=== PATIENT | female | born 1985 | race Caucasian/White ===

== ENCOUNTER 2017-12-17 08:00 | Outpatient (CLI) | payer BC | END 2017-12-17 08:01 | disposition home or self-care (01) | LOC: LAB.R 08:00 | PROVIDERS: ATTEND Nurse Practitioner Obstetrics & Gynecology | DX: Z11.3 Encounter for screening for infections with a predominantly sexual mode of transmission (principal) | CPT/HCPCS: 87491; 87591 ==

== ENCOUNTER 2017-12-17 10:33 | Outpatient (CLI) | payer BC ==
[2017-12-17 11:00] LABS: BILIRUBIN,URINE NEGATIVE (NEGATIVE); GLUCOSE, URINE (UA) NEGATIVE (NEGATIVE); KETONES,URINE (UA) NEGATIVE (NEGATIVE); LEUKOCYTE ESTERASE, URINE NEGATIVE (NEGATIVE); NITRITE,URINE NEGATIVE (NEGATIVE); OCCULT BLOOD,URINE NEGATIVE (NEGATIVE); PH,URINE 6.5 PH (5.0-7.5); PROTEIN,URINE NEGATIVE (NEGATIVE); UROBILINOGEN,URINE 0.2 (NORMAL) E.U./dL (NORMAL)
[2017-12-17 11:00] LABS: BASOPHILS % (AUTO) 0.5 %; EOSINOPHILS # (AUTO) 0.1 10^3/uL (0.0-0.7); EOSINOPHILS % (AUTO) 0.7 %; HGB - HEMOGLOBIN 12.2 g/dL (12.0-16.0); LYMPHOCYTES # (AUTO) 1.4 10^3/uL (1.5-3.5); LYMPHOCYTES % (AUTO) 17.1 %; MEAN CORPUSCULAR HEMOGLOBIN 29.7 pg (27.0-31.0); MEAN CORPUSCULAR HGB CONC 34.6 g/dL (32.0-36.0); MEAN CORPUSCULAR VOLUME 85.9 fL (81.0-99.0); MEAN PLATELET VOLUME 9.4 fL (7.9-10.8); MONOCYTES # (AUTO) 0.6 10^3/uL (0.0-1.0); NEUTROPHILS # (AUTO) 6.2 10^3/uL (1.5-6.6); NEUTROPHILS % (AUTO) 74.7 %; PLT - PLATELET COUNT 193 10^3/uL (130-450); RED CELL DISTRIBUTION WIDTH 12.5 % (12.0-15.0); WHITE BLOOD COUNT 8.2 x10^3/uL (4.8-10.8)
[2017-12-17 11:21] LABS: CLARITY,URINE HAZY (CLEAR)
[2017-12-17 11:22] LABS: BACTERIA,URINE Rare /HPF (None Seen); RBC,URINE None Seen /HPF (0-5); SQUAMOUS EPITHELIAL CELL,UR MOD Squamous (<= Few)
[2017-12-18 10:02] LABS: HEPATITIS C ANTIBODY NON-REACTIVE (NON-REACTIVE)
[2017-12-18 10:03] LABS: HEPATITIS B SURFACE ANTIGEN NON-REACTIVE (NON-REACTIVE)
[2017-12-18 13:27] LABS: HIV AG/AB 4TH GEN NON-REACTIVE (NON-REACTIVE)
== END 2017-12-17 10:34 | disposition home or self-care (01) ==
LOC: LAB 10:33
PROVIDERS: ATTEND Nurse Practitioner Obstetrics & Gynecology
DX: Z36.9 Encounter for antenatal screening, unspecified (principal); Z11.3 Encounter for screening for infections with a predominantly sexual mode of transmission
CPT/HCPCS: 36415; 81001; 81599; 85025; 86592; 86762; 86803; 86850; 86900; 86901; 87340; 87389; 87491; 87591

== ENCOUNTER 2018-03-03 07:32 | Outpatient (CLI) | payer BC ==
--- NOTE | 2018-03-03 11:22 | Ultrasound Report ---
Procedure Date: 03/03/2018 Accession Number: [id number] / [id number] Procedure: US - OB Detailed Eval CPT Code: FULL RESULT: EXAM: OB Detailed Eval DATE: 03/03/2018 10:28 AM CLINICAL HISTORY: ENCTR FOR SCREENING OF MOTHER TECHNIQUE: Real-time scanning was performed with insurance follow up representative static images obtained. COMPARISON: None LAST MENSTRUAL PERIOD: 10/16/2017 Clinical Age: 19 weeks 5 days US Age: 19 weeks 0 days EFW Hadlock: 270 grams EFW % Hadlock: 15% Heart Rate: 140 bpm EDC: 07/23/2018 US EDC: 07/28/2018 BPD Hadlock: 19 weeks 0 days; Mean mm 43 HC Hadlock: 18 weeks 6 days; Mean mm 160 AC Hadlock: 19 weeks 0 days; Mean mm 135 FL Hadlock: 19 weeks 1 days; Mean mm 30 Presentation: Vertex Placental Location: Anterior Cervical Length: 3.7 cm Amniotic Fluid: JENELLE Subjectively normal cm; MVP 3.7 cm FINDINGS: A single live intrauterine gestation in vertex presentation with an anterior placenta without evidence of previa is identified. Limited visualization of the right ventricular outflow tract with no definite abnormality identified. The following anatomic structures were visualized and appear normal: The intracranial contents, including the ventricles and posterior fossa; the lips and orbits; the spine; the heart, including 4 chamber view and left ventricular outflow tract, and diaphragm; the abdominal contents, including the stomach, the bilateral kidneys, and urinary bladder, as well as a normal 3-vessel cord insertion; 4 limbs. IMPRESSION: Single live intrauterine gestation with a sonographic age of 19 weeks and 0 days. With the exception of the right ventricular outflow tract which was not well seen, a formal anatomy survey is normal.
== END 2018-03-03 07:33 | disposition home or self-care (01) ==
LOC: DI 07:32
PROVIDERS: ATTEND Nurse Practitioner Obstetrics & Gynecology
DX: Z36.9 Encounter for antenatal screening, unspecified (principal)
CPT/HCPCS: 76811

== ENCOUNTER 2018-05-28 11:19 | Outpatient (CLI) | payer BC, OTHER | END 2018-05-28 11:20 | disposition home or self-care (01) | LOC: LAB 11:19 | PROVIDERS: ATTEND Registered Nurse | DX: Z34.83 Encounter for supervision of other normal pregnancy, third trimester (principal) | CPT/HCPCS: 36415; 86850 ==

== ENCOUNTER 2018-05-28 11:35 | Outpatient (CLI) | payer BC, OTHER | END 2018-05-28 11:36 | disposition home or self-care (01) | LOC: WFO 11:35 | PROVIDERS: ATTEND Registered Nurse | DX: Z53.9 Procedure and treatment not carried out, unspecified reason (principal) ==

== ENCOUNTER 2018-06-03 07:42 | Outpatient (CLI) | payer BC, OTHER ==
--- NOTE | 2018-06-03 11:57 | Ultrasound Report ---
Reason: Encnt for supervsn of normal first prg, third trimester. Reval. Procedure Date: 06/03/2018 Accession Number: [id number] / [id number] Procedure: US - OB F/U or Repeat CPT Code: FULL RESULT: EXAM: COMPLETE OBSTETRICAL ULTRASOUND EXAM DATE: 06/03/2018 08:43 AM. CLINICAL HISTORY: anatomic survey. COMPARISON: None. TECHNIQUE: Real-time sonographic evaluation of the fetus performed by the plastic panel installer. Multiple junior sales representative static images were saved for review. Additional transvaginal imaging to more accurately evaluate cervical length/placental position/etc. DATING: Established EGA 32 weeks 6 days with LORAINE 07/23/2018 based on last menstrual period. EGA 32 weeks 1 day with LORAINE 07/28/2018 based on prior ultrasound. EGA 31 weeks and 5 days with LORAINE 07/31/2018 based on the current ultrasound. GENERAL EVALUATION Ship[place] . Cardiac activity: 154 bpm. movement: Visualized. Presentation: Vertex Placenta: Anterior position. No evidence for previa. Amniotic fluid: JENELLE 9.2 MVP 3.9 cm. BIOMETRY Bi-Parietal Diameter (BPD): 8 cm, 31 weeks 6 days Head Circumference (HC): 29.5 cm, 32 weeks 3 days Abdominal Circumference (AC): 27.1 cm, 31 weeks 1 day Femur Length (FL): 6.1 cm, 31 weeks 5 days Estimated Weight: 1792 g, 25th percentile for 32 weeks 6 days. ANATOMY The ventricular outflow tracts were well seen and appear normal. MATERNAL STRUCTURES Uterus: An anterior fibroid is again seen measuring up to 3.4 cm. The cervix was not specifically evaluated but appeared long and closed subjectively. Right ovary/adnexa: Unremarkable. Left ovary/adnexa: Unremarkable. Free fluid: None. IMPRESSION: 1. Shipley live intrauterine with gestational age 32 weeks 6 days based on last menstrual period. 2. Estimated weight is within expected limits for assigned dating. 3. Normal right ventricular outflow tract. RADIA
== END 2018-06-03 07:43 | disposition home or self-care (01) ==
LOC: DI 07:42
PROVIDERS: ATTEND Nurse Practitioner Obstetrics & Gynecology
DX: Z34.03 Encounter for supervision of normal first pregnancy, third trimester (principal)
CPT/HCPCS: 76816

== ENCOUNTER 2018-06-25 16:25 | Outpatient (CLI) | payer BC, OTHER | END 2018-06-25 16:26 | disposition home or self-care (01) | LOC: LAB.R 16:25 | PROVIDERS: ATTEND Nurse Practitioner Obstetrics & Gynecology | DX: Z36.9 Encounter for antenatal screening, unspecified (principal) | CPT/HCPCS: 87797 ==

== ENCOUNTER 2018-07-10 14:53 | Outpatient (CLI) | payer OTHER, BC ==
--- NOTE | 2018-07-11 11:28 | Ultrasound Report ---
Reason: UTERINE SIZE DATE DISCREPANCY,THIRD TRIMESTER Procedure Date: 07/10/2018 Accession Number: [id number] / [id number] Procedure: US - OB F/U or Repeat CPT Code: FULL RESULT: EXAM: FOLLOW-UP OBSTETRICAL ULTRASOUND EXAM DATE: 07/10/2018 04:00 PM. CLINICAL HISTORY: UTERINE SIZE DATE DISCREPANCY,THIRD TRIMESTER. COMPARISON: 06/03/2018. TECHNIQUE: Real-time sonographic evaluation of the fetus performed by the professional athletes coach. Multiple pharmaceutical sales representative static images were saved for review. DATING: Established EGA 38 weeks 1 day with LORAINE 07/23/2018 based on physician assigned dating. EGA 36 weeks 4 days with LORAINE 08/03/2018 based on the current ultrasound. EGA 37 weeks with LORAINE 07/31/2018 based on the ultrasound exam from 06/03/2018. GENERAL EVALUATION [place] . Cardiac activity: 139 bpm. movement: Visualized. Presentation: Cephalic. Placenta: Anterior position. Amniotic fluid: Normal. JENELLE 8.3 cm. MVP 3 cm. BIOMETRY Bi-Parietal Diameter (BPD): 8.9 cm, 36 weeks 0 days Head Circumference (HC): 32.9 cm, 37 weeks 4 days Abdominal Circumference (AC): 33.5 cm, 37 weeks 3 days Femur Length (FL): 6.9 cm, 35 weeks 3 days Estimated Weight: 3046 g, 31st percentile for 38 weeks 1 day. ANATOMY A full anatomic survey was not performed. MATERNAL STRUCTURES Maternal structures are not evaluated. IMPRESSION: 1. [place] live intrauterine with gestational age 38 weeks 1 day based on previously established dating. 2. Estimated weight is within expected limits for assigned dating. 3. Normal interval growth compared to 06/03/2018. RADIA
== END 2018-07-10 14:54 | disposition home or self-care (01) ==
LOC: DI 14:53
PROVIDERS: ATTEND Nurse Practitioner Obstetrics & Gynecology
DX: O26.843 Uterine size-date discrepancy, third trimester (principal); Z3A.38 38 weeks gestation of pregnancy
CPT/HCPCS: 76816

== ENCOUNTER 2018-07-26 22:26 | Outpatient (CLI) | payer BC, OTHER ==
[2018-07-26 23:03] VITALS: BP 118/77
[2018-07-26 23:57] LABS: RUPTURE OF MEMBRANES PLUS NEGATIVE (NEGATIVE)
== END 2018-07-27 00:49 | disposition home or self-care (01) ==
LOC: WFO 22:26 → FBP 22:32 → WFO 07-27 00:49
PROVIDERS: ATTEND Registered Nurse
DX: Z34.83 Encounter for supervision of other normal pregnancy, third trimester (principal)
CPT/HCPCS: 84112; 99213

== ENCOUNTER 2018-07-27 19:17 | Inpatient (IN) | payer BC, OTHER ==
[2018-07-27 22:14] LABS: RUPTURE OF MEMBRANES PLUS NEGATIVE (NEGATIVE)
[2018-07-27] MEDS ORDERED: ONDANSETRON 4 MG/2 ML VIAL IVP PRN (22:40)
[2018-07-27] MEDS ORDERED: fentaNYL 100 MCG/2 ML VIAL IVP PRN ×2 (23:04→23:13)
[2018-07-27] MEDS ORDERED: fentaNYL 250 MCG/5 ML VIAL IVP PRN (23:11)
[2018-07-27] MEDS: SODIUM CHLORIDE FLUSH 0.9% 10 ML SYRINGE IVP PRN (23:40)
[2018-07-28 00:48] LABS: BASOPHILS % (AUTO) 0.3 %; EOSINOPHILS % (AUTO) 0.2 %; HGB - HEMOGLOBIN 12.1 g/dL (12.0-16.0); LYMPHOCYTES # (AUTO) 1.2 10^3/uL (1.5-3.5); LYMPHOCYTES % (AUTO) 9.8 %; MEAN CORPUSCULAR HEMOGLOBIN 30.6 pg (27.0-31.0); MEAN CORPUSCULAR HGB CONC 34.3 g/dL (32.0-36.0); MEAN CORPUSCULAR VOLUME 89.3 fL (81.0-99.0); MEAN PLATELET VOLUME 11.3 fL (7.9-10.8); MONOCYTES # (AUTO) 0.8 10^3/uL (0.0-1.0); MONOCYTES % (AUTO) 6.6 %; NEUTROPHILS # (AUTO) 10.1 10^3/uL (1.5-6.6); NEUTROPHILS % (AUTO) 83.1 %; PLT - PLATELET COUNT 181 10^3/uL (130-450); RED BLOOD COUNT 3.95 10^6/uL (4.20-5.40); RED CELL DISTRIBUTION WIDTH 13.2 % (12.0-15.0); WHITE BLOOD COUNT 12.1 x10^3/uL (4.8-10.8)
[2018-07-28] MEDS ORDERED: LACTATED RINGERS 1,000 ML IV ONE (01:06)
[2018-07-28] MEDS ORDERED: fent/BUPIV 2 MCG/0.125% 250 ML EP ONE (01:14)
[2018-07-28] MEDS ORDERED: ROPIVACAINE 0.2% PF 20 ML AMPULE ONE (01:14)
[2018-07-28] MEDS: LACTATED RINGERS 1,000 ML IV SCH ×6 (01:23→23:36)
--- NOTE | 2018-07-28 02:07 | ANESTHESIA ---
Pre-Anesthesia VS, & Labs - Diagnosis term , desires labor analgesia - Procedure Labor epidural Vital Signs: Temp Pulse Resp BP Pulse Ox 36.9 C 74 22 114/73 100 07/27/18 23:40 07/27/18 23:40 07/27/18 23:40 07/27/18 23:40 07/27/18 23:40 Height 5 ft 1 in Weight (kg) 77.111 kg - NPO Other (clears from now till delivery) - Is Patient ?: Yes - Lab Results Current Lab Results: Laboratory Tests 07/27/18 23:45: WBC 12.1 H, RBC 3.95 L, Hgb 12.1, Hct 35.2 L, MCV 89.3, MCH 30.6, MCHC 34.3, RDW 13.2, Plt Count 181, MPV 11.3 H, Neut # (Auto) 10.1 H, Lymph # (Auto) 1.2 L, [place] # (Auto) 0.8, Eos # (Auto) 0.0, Baso # (Auto) 0.0, Absolute Nucleated RBC 0.00, Nucleated RBC % 0.0 Fish Bones: 07/27/18 23:45 Home Medications and Allergies Active Medications Fentanyl (Fentanyl) 100 mcg IVP Q1HR PRN PRN Reason: PAIN Lactated Ringer's (Lr) 1,000 mls @ 150 mls/hr IV .Q6H40M [facility] Last Admin: 07/28/18 01:23 Dose: 150 mls/hr Ondansetron HCl (Zofran Inj) 4 mg IVP Q4HR PRN PRN Reason: Nausea / Vomiting Sodium Chloride (Normal Saline Flush 0.9%) 10 ml IVP PRN PRN PRN Reason: NEEDED PER PROVIDER ORDERS Last Admin: 07/27/18 23:40 Dose: 10 ml Allergies/Adverse Reactions: Allergies Allergy/AdvReac Type Severity Reaction Status Date / Time amoxicillin Allergy Rash Verified 07/28/18 01:00 Anes History & Medical History - Anesthetic History Anesthesia Complications: reports: No previous complications - Medical History Cardiovascular: reports: None Pulmonary: reports: None Gastrointestinal: reports: GERD Urinary: reports: None Neuro: reports: None Musculoskeletal: reports: None Blood Disorders: reports: None Smoking Status: Never smoker - Obstetrical History Events: positive: None Plan for Delivery: vaginal with epidural OB Anesthesia History: primagravida Exam General: Alert Dental: WNL Mouth Opening: Greater than 4 Fingerbreadths Neck Mobility: Normal Mallampati classification: II Thyromental Distance: greater than 6 cm Plan Anesthesia Type: Epidural Consent for Procedure(s) Verified and Reviewed: Yes Code Status: Attempt Resuscitation ASA classification: 2-Mild systemic disease Is this case an emergency?: No
[2018-07-28] MEDS ORDERED: diphenhydrAMINE INJ 50 MG/ML VIAL IVP PRN (02:08)
[2018-07-28] MEDS ORDERED: ONDANSETRON 4 MG/2 ML VIAL IVP PRN (02:08)
[2018-07-28] MEDS ORDERED: NALOXONE 0.4 MG/ML VIAL IVP PRN (02:08)
[2018-07-28] MEDS ORDERED: NALBUPHINE 10 MG/ML AMP IVP PRN (02:08)
[2018-07-28] MEDS ORDERED: fent/BUPIV 2 MCG/0.125% 250 ML EP PRN ×3 (02:08→15:57)
[2018-07-28] MEDS ORDERED: METOCLOPRAMIDE 10 MG/2 ML VIAL IVP PRN (02:08)
[2018-07-28] MEDS ORDERED: LACTATED RINGERS 500 ML IV SCH (02:08)
[2018-07-28] MEDS: ePHEDrine 50 MG/ML VIAL IVP PRN ×2 (05:26→07:38)
--- NOTE | 2018-07-28 08:32 | HISTORY & PHYSICAL EXAMINATION ---
Admit History - Visit Reason Visit Reason: Contractions (@ 1100) - : 2 Parity: 0 Premature: 0 Ectopic: 0 : 1 Care: positive: [facility] Risk/History: positive: None Complications This : positive: None Smoking Status: Never smoker - Mother's Labs Mother's Blood Type: positive: O Mother's RH: positive: Positive GBS: positive: Group B Step Negative Rubella Status: positive: Immune Meds/Allgy - Allergies Allergies/Adverse Reactions: Allergies Allergy/AdvReac Type Severity Reaction Status Date / Time amoxicillin Allergy Rash Verified 07/28/18 01:00 Review of Systems - Constitutional Constitutional: reports: Fatigue. denies: Fever, Chills - Eyes Eyes: denies: Blurred vision, Spots in vision, Dipolpia - Cardiovascular Cariovascular: denies: Irregular heart rate, Palpitations, Chest pain, Edema - Respiratory Respiratory: denies: Cough, Snoring, SOB at rest, SOB with exertion - Gastrointestinal Gastrointestinal: reports: Abdominal pain. denies: Constipation, Diarrhea, Nausea, Vomiting - Genitourinary Genitourinary: reports: Frequency, Urgency. denies: Dysuria - Musculoskeletal Musculoskeletal: denies: Muscle pain, Back pain, Muscle aches - Integumentary Integumentary: denies: Rash, Pruritis, Lesions - Neurological Neurological: denies: General weakness, Headache, Dizziness - Psychiatric Psychiatric: denies: Depression, Anxiety - All Other Systems All Other Systems: denies: Reviewed and negative Physical - Abdominal Exam Vital Signs: Temp Pulse Resp BP Pulse Ox 36.9 C 74 22 114/73 100 07/27/18 23:40 07/27/18 23:40 07/27/18 23:40 07/27/18 23:40 07/27/18 23:40 Contraction Frequency (min/apart): 2-4 Contraction Intensity: positive: Moderate Uterine Resting Tone: positive: Soft - Monitoring Heart Rate Baseline: 135 Strip Review: positive: Category I - Presentation Presentation: positive: Vertex - Vaginal Exam Membranes: positive: Membranes intact Dilation (in cm): 3 Effacement (%): 80 Station: positive: 0 Cervical Position: positive: Anterior (per RN) - Speculum Exam Speculum Exam Performed: positive: No Findings: negative: Gross leak - Other Notes Labor Progress Note/Additional Text: Kath Stallings is a 32 y/o @ 40w4d by first trimester US whose care has been consistent & uncomplicated t/o. She presents w/ a complaint of uterine contractions x12 hours & has changed her cervical status from 1cm to 3cm. She is tearful & tired & desires epidural anesthesia. Her screening labs have all been WNL & her GBS status is negative. PMH: Unremarkable PSH: None OBhx: 10 week 2016, no complications GYNhx: No hx STI, normal paps Sochx: , no DV, presently unemployed, no tobacco/ETOH/drugs Famhx: Unremarkable PE: GEN:aaox3, NAD WA gravid female HEENT: grossly normocephalic, atrauamtic RESP: CTA B/L CARDIAC: RRR [id number] ABD: gravid, NT, lie longitudinal, presentation cephalic, EFW 6.5-7# OB: EFM Bl 135bpm + accels, no decels, mod ross; TOCO: UCs q2-4 min x60 sec, palp mod; SVE per RN 380/0, ROM plus negative : No lesion MS: FROM t/o, no deformity, no edema NEURO: no focal deficit SKIN: warm, well-perfused, c/d/i, no lesion PSYCH: uncomfortable & moderately anxious Plan for Labor - Plan For Labor I expect patient to be DC'd or transferred within 96 hours.: Yes Plan for Labor: 1. Admit 2. Epidural per pt request 3. Reassess cervical status x4 hours, earlier PRN
--- NOTE | 2018-07-28 08:51 | PROVIDER PROGRESS NOTE ---
Labor Progress Note - Uterine Monitoring Uterine Monitoring Mode: positive: External toco Contraction Frequency (min/apart): 3 Contraction Intensity: positive: Moderate Uterine Resting Tone: positive: Soft - Monitoring Monitor Mode: positive: External ultrasound Heart Rate Baseline: 145 Heart Rate Variability: positive: Minimal (0-5 bpm) Accelerations: positive: Present, 15x15 Decelerations: positive: Late (intermittent) - Vaginal Exam Dilation (in cm): 3 Effacement (%): 80 Station: 0 Cervical Position: Anterior - Labor Progress Note Labor Progress Note/Additional Text: Called by RN secondary to FHTs s/p epidural placement. Subtle lates, intermittent, became more persistent 0430, pt has received bolus. BPs consistently in 80s/50s. Recommended RN call anesthesia to evaluate patient & administer ephedrine to manage epidural-related hypotension. RN to call back if persistent decelerations s/p ephedrine or anesthesia unable to increase pt blood pressure to appropriate level. No clear labor progress x6 hours.
--- NOTE | 2018-07-28 08:57 | PROVIDER PROGRESS NOTE ---
Labor Progress Note - Uterine Monitoring Uterine Monitoring Mode: positive: External toco Contraction Frequency (min/apart): 4-5 Contraction Intensity: positive: Mild Uterine Resting Tone: positive: Soft - Monitoring Monitor Mode: positive: External ultrasound Heart Rate Baseline: 145 Heart Rate Variability: positive: Moderate (6-25 bmp) Accelerations: positive: Present, 15x15 Decelerations: positive: Variable (occasional to vega in 110s w/ spontaneous return to baseline <30 seconds) Strip Review: positive: Category II (no evidence of acidemia) - Vaginal Exam Dilation (in cm): 4-5 Effacement (%): 70 Station: 0 Cervical Position: Anterior (BBOW AROMed for moderate port-wine fluid) - Labor Progress Note Labor Progress Note/Additional Text: S: Kath is comfortable w/ epidural in place, some frustration w/ still being ; Rodrigo & her mother & MIL are present @ the bedside & supportive O: AAAOx3, NAD WA gravid female VSS: BP no 110/63 s/p 2 doses of ephedrine EFM BL 145bpm, +accels, occ ross decels to vega in 110s w/ spontaneous return to baseline <30 seconds; moderate variability TOCO: UCs q 4-5 min x45-60 seconds, palp mod SVE: 4-5/70/0 (descends to +1 w/ contraction), BBOW AROMed for moderate port- wine amniotic fluid; position LOP A: 32 y/o @ 40w5d w/ prolonged latent phase s/p prolonged prodromal phase, now w/ favorable cervical status GBS negative Port-wine amniotic fluid FHTs cat II w/o evidence of acidemia Adequate pain control w/ epidural anesthesia in place Normotensive s/p 2 doses IV ephedrine malposition P: 1. Reviewed augmentation & management, will initiate Pitocin infusion & titrate per protocol if no cervical change x3 hours 2. Reviewed optimal maternal positioning to facilitate rotation & descent 3. Minimize SVE to only those clinically essential 4. Reviewed plan of care w/ pt, family & RN @ bedside; all in agreement, without concerns.
[2018-07-28] MEDS ORDERED: OXYTOCIN/SODIUM CHLORIDE 500 ML IV SCH (09:00)
[2018-07-28] MEDS ORDERED: ePHEDrine 50 MG/ML VIAL IVP SCH ×2 (10:31→15:35)
[2018-07-28] MEDS: SODIUM CHLORIDE FLUSH 0.9% 10 ML SYRINGE IVP PRN ×3 (10:43→15:57)
--- NOTE | 2018-07-28 11:26 | PROVIDER PROGRESS NOTE ---
Labor Progress Note - Uterine Monitoring Uterine Monitoring Mode: positive: External toco Contraction Frequency (min/apart): 3 Contraction Intensity: positive: Moderate Uterine Resting Tone: positive: Soft - Monitoring Monitor Mode: positive: External ultrasound Heart Rate Baseline: 150 Heart Rate Variability: positive: Moderate (6-25 bmp) Accelerations: positive: Present, 15x15 Decelerations: positive: None Strip Review: positive: Category I - Vaginal Exam Dilation (in cm): 5 Effacement (%): 90 Station: 1 (per RN) Cervical Position: Anterior - Labor Progress Note Labor Progress Note/Additional Text: S: Kath is comfortable w/ her epidural in place; family @ the bedside, suppor tive. O: AAOx3, NAD WA gravid female BPs 90/50s-110s/60s EFM: BL 150bpm, +accels, no decels, mod ross TOCO: UCs q3-4 min SVE: 5/90/+1 per RN, ongoing leakage of CAF A: 32 y/o @ 40w5d by first trimester US, active labor w/ prolonged latent phase & long pre-labor prodromal phase Minimal cervical change s/p AROM x3 hours GBS negative, afebrile, CAF FHTs cat I Adequate pain control w/ epidural anesthesia P: 1. Begin Pitocin infusion & titrate per protocol to adequate labor per tocometry 2. Reassess cervical status 2 hours s/p consistently adequate contraction pattern per tocometry; will place IUPC if no cervical change 3. Anticipate active management of the third stage & uterotonics in room for prevention of PPH, given prolonged labor process & increased risk for PPH
--- NOTE | 2018-07-28 12:32 | PROVIDER PROGRESS NOTE ---
Labor Progress Note - Uterine Monitoring Uterine Monitoring Mode: positive: External toco Contraction Frequency (min/apart): 2-4 Contraction Intensity: positive: Moderate Uterine Resting Tone: positive: Soft - Monitoring Monitor Mode: positive: External ultrasound Heart Rate Baseline: 150 Heart Rate Variability: positive: Moderate (6-25 bmp) Accelerations: positive: Present, 15x15 Decelerations: positive: Variable (non-repetitive to vega in 130s w/ spontaneous return to baseline <30 seconds) Strip Review: positive: Category II (w/o evidence of acidemia) - Vaginal Exam Dilation (in cm): 6 Effacement (%): 90 Station: 1 (per RN) Cervical Position: Anterior - Labor Progress Note Labor Progress Note/Additional Text: Called by FBP RN to review patient strip; reviewed in real time & baseline 150bpm, +accels, non-repetitive variable decelerations to vega in 130s w/ spontaneous return to baseline <30 seconds, moderate variability. Category II & overall reassuring w/o evidence of acidemia. Pitocin appears to be infusing at a rate of 1mU/min & contraction activity is occurring per tocometry q2-4 minutes x80-100 seconds. AROM for port-wine amniotic fluid @ 0815, for a total ruptured duration of 4.25 hours, afebrile. Continue Pitocin infusion & titrate to maintain adequate contraction pattern per tocometry. Reassess cervical status x2 hours, earlier PRN. No additional intervention is clinically indicated @ this time. RN articulates full understanding.
--- NOTE | 2018-07-28 13:38 | PROVIDER PROGRESS NOTE ---
Labor Progress Note - Uterine Monitoring Uterine Monitoring Mode: positive: External toco Contraction Frequency (min/apart): 2-3 on 1 mU/min of Pitocin Contraction Intensity: positive: Moderate Uterine Resting Tone: positive: Soft - Monitoring Monitor Mode: positive: External ultrasound Heart Rate Baseline: 150 Heart Rate Variability: positive: Moderate (6-25 bmp) Accelerations: positive: Present, 15x15 Decelerations: positive: None Strip Review: positive: Category I - Vaginal Exam Dilation (in cm): 6 Effacement (%): 90 Station: 1 Cervical Position: Anterior (per RN) - Labor Progress Note Labor Progress Note/Additional Text: S: Kath is having discomfort in her LLQ w/ her epidural in place. Discomfort is persistent. Family @ bedside, supportive O: AAOx3 VSS BPs 110s/70s EFM: BL 150bpm, +accels, no decels, mod ross TOCO: UCs q2-3 min x80-100 seconds, palpably moderate w/ 1 mU/min Pitocin infusing SVE per RN: A: 32 y/o @ 40w5d, prolonged latent phase Pitocin augmentation w/o titration, adequate contraction pattern per tocometry No cervical change since initiation of Pitocin infusion Inadequate pain control w/ epidural anesthesia GBS negative, AROM 5.25 hours, afebrile FHTs cat I P: 1. Anesthesia to evaluate patient 2. Continue to titrate Pitocin per protocol to maintain adequate labor pattern by tocometry 3. Reassess cervical status x2 hours, earlier PRN; if no cervical change x2 hours, will insert IUPC 4. Reviewed FHR strip directly w/ Dr. Catracho MD, present @ bedside; he concurs with present management plan & agrees that FHTs are presently cat I & that, on long-term review of FHTs, variability remains moderate w/o evidence of acidemia
[2018-07-28] MEDS ORDERED: miSOPROStol 200 MCG TABLET ONE (13:59)
[2018-07-28] MEDS ORDERED: LIDOCAINE 1% 50 ML MDV ONE (13:59)
[2018-07-28] MEDS ORDERED: LIDOCAINE-MPF 1% 5 ML VIAL ONE (14:05)
[2018-07-28] MEDS ORDERED: fentaNYL 100 MCG/2 ML VIAL ONE ×2 (14:17→14:47)
--- NOTE | 2018-07-28 15:19 | ANESTHESIA PROCEDURE NOTE ---
Anesthesia Epidural Template - Other Comments Other Comments: Called to evaluate epidural due patient reports of pain with contractions. Upon arrival, level was noted to be at L2 and patient was very uncomfortable with contractions. It appeared as tho the previously placed epidural had backed out 1cm. A bolus of 10ml of 1%PF lidocaine was given via epidural and the patient reported no pain relief after 15 mins. Discussed risk and benefits of replacing epidural with CSE and patient wanted to proceed. The previously placed epidural was removed with tip intact and the patient's back was prepped with betadine solution x3. The skin was localized at the L3-L4 level and a 17G tuhoy needle was inserted with MICHAEL at 5cm. A 27G pencan spinal needle was inserted with return of clear fluid and a total of 20mcg of fentanyl was injected intrathecal. The flexible catheter was inserted and advanced with ease to 11cm. Aspiration prior to test dose was performed and it was noted clear fluid was easily aspirated into syringe. 2ml of test dose was given and patient reported relief from contractions., It is highly suspected the catheter is intrathecal. Catheter continues to aspirate clear fluid easily and due to relief patient obtained with test dose, it will be treated as such until proven otherwise. The drip was reduc ed to 2ml/hr with no PCEA and nursing staff was advised on how to manage catheter. All anesthesia staff was notified and the catheter was marked as intrathecal. Plan is to remove catheter in 24 hours and monitor for post dural puncture headache post delivery.
[2018-07-28] MEDS ORDERED: BUPIVACAINE 0.25% PF 10 ML VIAL ONE (15:31)
[2018-07-28] MEDS ORDERED: MINERAL OIL LIGHT 10 ML MC ONE (18:07)
[2018-07-28] MEDS ORDERED: METHYLERGONOVINE 0.2 MG/ML AMP ONE (19:19)
--- NOTE | 2018-07-28 19:20 | PROVIDER PROGRESS NOTE ---
Labor Progress Note - Uterine Monitoring Uterine Monitoring Mode: positive: External toco Contraction Frequency (min/apart): 2-4 Contraction Intensity: positive: Moderate to strong Uterine Resting Tone: positive: Soft - Monitoring Monitor Mode: positive: External ultrasound Heart Rate Baseline: 150 Heart Rate Variability: positive: Moderate (6-25 bmp) Accelerations: positive: Present, 15x15 Strip Review: positive: Category I - Vaginal Exam Dilation (in cm): 10 Effacement (%): 100 Station: 2 Cervical Position: Anterior (per RN) - Labor Progress Note Labor Progress Note/Additional Text: S: Kath is now comfortable w/ intrathecal catheter in place & infusing. Family @ bedside, supportive. Does not have urge to push but has been laboring down x1.25 hours O: AAOx3, NAD WA gravid female VSS Bp 106/85 EFM: BL 150bpm, +accels, no decels, mod ross TOCO: UCs q2-4 min x80-100 sec, 1mU/min of Pitocin infusing SVE: per RN @ 1800 10/100/+2 A: 32 y/o @ 40w5d by first trimester US, long latent phase, s/p AROM & Pitocin augmentation w/ progressive cervical change 2nd stage, laboring down x1.25 hours GBS negative, port-wine amniotic fluid, AROM x11 hours, afebrile FHTs cat I Adequate pain control w/ intrathecal anesthesia P: 1. Begin pushing 2. Anticipate 3. Plan for full array of uterotonics onhand in the room for immediate use for both active management to prevent & management of excessive bleeding, given long pre-labor prodromal phase & long latent phase of labor
--- NOTE | 2018-07-28 19:57 | PROVIDER PROGRESS NOTE ---
Labor Progress Note - Uterine Monitoring Uterine Monitoring Mode: positive: IUPC (Placed without incident) Contraction Frequency (min/apart): baseline 30mmHg, peak 65mmHg, MVU presently 175 : 2-4 Contraction Intensity: positive: Moderate - Monitoring Monitor Mode: positive: External ultrasound Heart Rate Baseline: 150 Heart Rate Variability: positive: Moderate (6-25 bmp) Accelerations: positive: Present, 15x15 Decelerations: positive: None Strip Review: positive: Category I - Vaginal Exam Dilation (in cm): 5 Effacement (%): 70, edematous Station: 0 Cervical Position: Midposition - Labor Progress Note Labor Progress Note/Additional Text: S: Kath is comfortable w/ intrathecal in place, frustrated w/ length of process O: AAox3, NAD WA gravid female VSS EFM: BL 150, +accels, no decels, mod ross IUPC placed w/o incident, baseline 30mmHg, Peak 65mmHg, MVU presently ~175 SVE by me: 5/70 (edematous)/0, anterior, position ROP A: 32 y/o @ 40w5d by first trimester US, long latent phase, minimal cervical progress on my exam x11 hours, AROM for port-wine amniotic fluid x11.5 hours, afebrile s/p initiation of Pitocin infusion @ 1130, no titration as nursing stated cervical change was occurring Adequate pain control w/ intrathecal anesthesia GBS negative FHTs cat I Dysfunctional labor pattern P: 1. Titrate Pitocin per IUPC to achieve adequate labor pattern by MVU 2. Reassess cervical status 2 hours s/p adequate labor achieved by MVU 3. Reviewed optimal maternal positioning to facilitate rotation & descent 4. Encouraged maternal rest 5. Reviewed possibility of CPD & implications, likely just inadequate labor, but if no cervical change w/ adequate contraction activity by IUPC will be arrest of dilatation & reviewed w/ pt indication for operative delivery in that event 6. Reviewed implications of malposition 7. Dr. [place] MD, back-up RN PERITONE[facility] DIALYSIS apprised of situation
[2018-07-28 22:20] LABS: ALBUMIN 2.4 g/dL (3.2-5.5); ALBUMIN/GLOBULIN RATIO 0.7 (1.0-2.2); BILIRUBIN,TOTAL 0.6 mg/dL (0.2-1.0); CALCIUM 8.1 mg/dL (8.5-10.3); CREATININE 0.7 mg/dL (0.4-1.0); TOTAL PROTEIN 5.8 g/dL (6.7-8.2)
[2018-07-29] MEDS ORDERED: METHYLERGONOVINE 0.2 MG/ML AMP ONE (02:55)
[2018-07-29] MEDS ORDERED: METHYLERGONOVINE 0.2 MG/ML AMP IM ONE (03:00)
[2018-07-29] MEDS ORDERED: SODIUM CHLORIDE 0.9% IV SCH (03:00)
[2018-07-29] MEDS ORDERED: VANCOMYCIN INJ 1 GM in SODIUM CHLORIDE 0.9% 250 ML IV SCH ×2 (03:00→12:30)
[2018-07-29] MEDS ORDERED: GENTAMICIN IV SCH (03:00)
[2018-07-29] MEDS ORDERED: VANCOMYCIN PER PHARMACY 0.00001 GM in SODIUM CHLORIDE 0.9% 250 ML IV PRN (03:06)
--- NOTE | 2018-07-29 03:28 | PROVIDER PROGRESS NOTE ---
Labor Progress Note - Uterine Monitoring Uterine Monitoring Mode: positive: IUPC Contraction Frequency (min/apart): 2-3 baseline 25mmHg, peak 80mmHg on 5mU/min of Pitocin Contraction Intensity: positive: Strong Uterine Resting Tone: positive: Soft - Monitoring Monitor Mode: positive: External ultrasound Heart Rate Baseline: 150 Heart Rate Variability: positive: Moderate (6-25 bmp) Accelerations: positive: Present, 15x15 Decelerations: positive: None Strip Review: positive: Category I - Vaginal Exam Dilation (in cm): deferred - Labor Progress Note Labor Progress Note/Additional Text: S: Kath is comfortable w/ intrathecal in place. O: AAox3, NAD WA gravid female VSS EFM: BL 150bpm, +accels, no decels, mod ross IUPC: UCs q2-3 min x80-100 sec, MVU >200 @ this time SVE deferred A: 32 y/o @ 40w5d by first trimester US, dysfunctional labor pattern, prolonged latent phase, 14.25 hours s/p AROM for [place]-wine amniotic fluid, afebrile Pitocin now titrated sufficiently to achieve active labor GBS negative, afebrile Adequate pain control w/ intrathecal anesthesia FHTs cat I P: 1. Continue to titrate Pitocin to maintain adequate labor pattern by MVU 2. Reassess cervical status x2 hours to ensure progress
--- NOTE | 2018-07-29 03:32 | PROVIDER PROGRESS NOTE ---
Labor Progress Note - Uterine Monitoring Uterine Monitoring Mode: positive: IUPC Contraction Frequency (min/apart): 2-3 MVU >200 Contraction Intensity: positive: Strong Uterine Resting Tone: positive: Soft - Monitoring Monitor Mode: positive: External ultrasound Heart Rate Baseline: 150 Heart Rate Variability: positive: Moderate (6-25 bmp) Accelerations: positive: Present, 15x15 Decelerations: positive: None Strip Review: positive: Category I - Vaginal Exam Dilation (in cm): 8 Effacement (%): 100 Station: 2 (per RN) Cervical Position: Anterior - Labor Progress Note Labor Progress Note/Additional Text: S: Kath is requesting a bolus of anesthesia secondary to renewed discomfort, family @ bedside, supportive O:AAOx3, NAD WA gravid female VSS EFM: BL 150bpm +accels, no decels, mod ross IUPC: UCs q 2-3 min baseline 25mmHg, peak 80mmHg; MVU >200 on 5mU/min of Pitocin SVE per RN: 8/100/+1 A: 32 y/o @ 40w6d by first trimester US, dysfunctional labor pattern w/ prolonged latent phase Progressive cervical change w/ adequate labor achieved w/ IUPC & appropriate titration of Pitocin infusion GBS negative, AROM x 16 hours, afebrile FHTs cat I Inadequate pain control w/ current anesthesia P: 1. Reassess cervical status x3 hours, earlier PRN 2. Anesthesia to evaluate 3. Continue to titrate Pitocin to maintain adequate labor by IUPC
--- NOTE | 2018-07-29 03:45 | DELIVERY NOTE ---
Delivery Note - Labor Labor: positive: Augmented by ARM, Augmented by oxytocin - Delivery Method Delivery Method: positive: Spontaneous vaginal delivery - Presentation Presentation: positive: Vertex, LINUS - right occiput anterior - Nuchal Cord Nuchal Cord: positive: None - Anesthetic Anesthetic Type: - Amniotic Fluid Description Amniotic Fluid Description: positive: [place] tinged, Foul odor (noticed w/ assessment of cervical status @ anterior lip; tachycardia also noted; triple I dx'ed @ that time & vancomycin 1g IVPB & gentamycin 150mg IVPB administered immediately prior to delivery) - Episiotomy Type Episiotomy Type: positive: None - Laceration Laceration: positive: None - Delivery Outcome Delivery Outcome: positive: Livebirth - [place]: positive: Placed in direct skin contact with mother, Suctioned, Bulb syringe, Stimulated, Warmed, [place] used [place] sex: positive: Female - Cord Cord: positive: 3 vessels - Placenta Placenta: positive: Intact, Spontaneous, Other (very warm) - Estimated Blood Loss Estimated Blood Loss (in cc): 150 - Post Delivery Events Post Delivery Events: positive: No post delivery events - Delivery Comments (Free Text/Narrative) Delivery Comments (Free Text/Narrative): Kath Stallings is a 32 y/o [id number] who presented in latent labor s/p long prodromal phase, requesting an epidural. She received an epidural @ 3cm dilatation & progressed slowly thereafter to 4cm over a period of >8 hours. She underwent AROM for pink-tinged amniotic fluid @ 0815 on 07/28/2018 w/ nursing orders to initiate Pitocin infusion @ 11:15 if no significant cervical change. She underwent removal of her epidural catheter & replacement w/ intrathecal catheter secondary to inadequate anesthesia. FHTs were monitored electronically t/o & were cat I-II w/o evidence of acidemia. Minimal cervical change was noted & Pitocin infusion was therefore initiated but it was not titrated beyond 1mU/min, as contraction frequency was adequate & RN conveyed that there was progressive cervical change; RN reported pt completely dilated @ 1800, but she was found to have been unchanged when assessed by myself @ 1930. IUPC was therefore placed w/o incident & Pitocin was titrated per orders to achieve adequate labor by MVU. Maximum Pitocin infusion was 5mU/min & adequate labor was readily achieved; pt was found to be 8cm @ 0030, and progressed w/ ongoing Pitocin infusion to an anterior lip, which was persistent but reducible. With evaluation of cervical status @ anterior lip, amniotic fluid was noted to have a foul odor & tachycardia was additionally noted; a diagnosis of triple I was therefore made & parenteral antimicrobial therapy was initiated w/ vancomycin & gentamicin. Anterior lip reduced & pt found to be complete @ 0305, for a total first stage duration of 19 hours. Pt pushed w/ direction & excellent expulsive effort to achieve viable female in LINUS position over an intact perineum @ 0318, for a total 2nd stage duration of 13 minutes. Infant vigorous, very warm to touch; placed to maternal abd for drying/stim. Delayed cord clamping until cessation of pulsation, then cord clamped x2 by CNM, cut by FOB. 3VC noted, cord blood obtained; cord segment obtained for gases secondary to cat II tracing w/ tachycardia x45 minutes prior to delivery. 3rd stage actively managed w/ Pitocin in IV fluids & methergine 0.2mg IM x1 for prolonged latent phase. Placenta delivered spontaneously & intact, Antonio, @ 0320, for a total 3rd stage duration of 2 minutes. FF @ U. Vagina & perineum inspected & found to be intact. Placenta to pathology for evaluation for suspected Triple I. EBL 150mL. Mother & stable. Apgars 8/9, weight pending; planning to breastfeed; nuzzling @ breast w/in 20 minutes of delivery.
[2018-07-29] MEDS ORDERED: HYDROCORTISONE 1% CREAM 28 GM TUBE PR PRN (03:54)
[2018-07-29] MEDS ORDERED: HYDROCORTISONE/PRAMOXINE 10 GM PR PRN (03:54)
[2018-07-29] MEDS ORDERED: WITCH HAZEL/GLYCERIN 1 EACH MED..PAD TOP PRN (03:54)
[2018-07-29] MEDS ORDERED: MAGNESIUM HYDROXIDE 2,400 MG/30 ML UDC PO PRN (03:54)
[2018-07-29] MEDS ORDERED: OXYTOCIN/SODIUM CHLORIDE 0 ML IV ONE (04:41)
[2018-07-29] MEDS: ACETAMINOPHEN 500 MG TABLET PO SCH ×3 (06:11→16:44)
[2018-07-29] MEDS: IBUPROFEN 800 MG TABLET PO SCH ×4 (06:11→21:27)
[2018-07-29 06:22] LABS: BASOPHILS # (AUTO) 0.2 10^3/uL (0.0-0.1); BASOPHILS % (AUTO) 0.9 %; HGB - HEMOGLOBIN 12.3 g/dL (12.0-16.0); LYMPHOCYTES # (AUTO) 0.5 10^3/uL (1.5-3.5); LYMPHOCYTES % (AUTO) 2.9 %; MEAN CORPUSCULAR HEMOGLOBIN 30.5 pg (27.0-31.0); MEAN CORPUSCULAR HGB CONC 33.8 g/dL (32.0-36.0); MEAN CORPUSCULAR VOLUME 90.2 fL (81.0-99.0); MONOCYTES # (AUTO) 0.9 10^3/uL (0.0-1.0); MONOCYTES % (AUTO) 5.2 %; NEUTROPHILS # (AUTO) 16.5 10^3/uL (1.5-6.6); PLT - PLATELET COUNT 143 10^3/uL (130-450); RED BLOOD COUNT 4.04 10^6/uL (4.20-5.40); RED CELL DISTRIBUTION WIDTH 13.3 % (12.0-15.0); WHITE BLOOD COUNT 18.1 x10^3/uL (4.8-10.8)
[2018-07-29] MEDS: DOCUSATE SODIUM 100 MG CAPSULE PO SCH ×2 (08:51→21:27)
--- NOTE | 2018-07-29 11:41 | ANESTHESIA POST OP EVALUATION ---
Anesthesia Post Eval - Post Anesthesia Eval CV Function Including HR & BP: positive: Stable Pain Control: positive: Adequate Nausea & Vomiting: positive: Negative Mental Status: positive: Appropriate Anesthesia Complications: positive: None (Patient reports she had good pain control with epidural. No c/o headache. No residual effects from epidural. No apparent anesthesia complications.)
[2018-07-29] MEDS ORDERED: GENTAMICIN 120 MG in SODIUM CHLORIDE 0.9% 100ML 100 ML IV SCH (12:00)
[2018-07-29] MEDS ORDERED: SODIUM CHLORIDE FLUSH 0.9% 10 ML SYRINGE ONE (13:22)
[2018-07-29] MEDS: SODIUM CHLORIDE FLUSH 0.9% 10 ML SYRINGE IVP PRN (13:22)
[2018-07-30] MEDS ORDERED: SODIUM CHLORIDE 0.9% IV SCH ×3 (03:15)
[2018-07-30] MEDS ORDERED: GENTAMICIN IV SCH (03:15)
[2018-07-30] MEDS ORDERED: SODIUM CHLORIDE FLUSH 0.9% 10 ML SYRINGE ONE (03:15)
[2018-07-30] MEDS ORDERED: GENTAMICIN PER PHARMACY IV SCH ×2 (03:15)
[2018-07-30] MEDS: ACETAMINOPHEN 500 MG TABLET PO SCH ×2 (04:17→13:04)
[2018-07-30] MEDS: IBUPROFEN 800 MG TABLET PO SCH ×3 (04:29→15:34)
[2018-07-30] MEDS ORDERED: VANCOMYCIN INJ 1 GM in SODIUM CHLORIDE 0.9% 250 ML IV SCH (04:30)
--- NOTE | 2018-07-30 08:53 | Discharge Plan ---
Discharge Plan Disposition: 01 Home, Self Care Condition: Good Diet: Regular Activity Restrictions: pelvic rest x6 weeks Shower Restrictions: No Driving Restrictions: No Weight Bearing: Full Weight Instruction Topics: Vaginal After, Breastfeed How To, Exercises Kegel No Smoking: If you smoke, Please STOP! Call for help. Follow-up with: Fox Burris, ROSIBEL, LUX [Provider Admit Priv/Credential] -
--- NOTE | 2018-07-30 08:56 | DISCHARGE SUMMARY ---
"Discharge Summary Admit Date: 07/27/18 Discharge Date: 07/30/18 Discharging Provider: gaurav Condition at Discharge: Good Discharge Disposition: 01 Home, Self Care Discharge Facility Name: [facility] - DIAGNOSES Admission Diagnoses: latent labor @ 40w4d Discharge Diagnoses with Status of Each Condition: - HPI History of Present Illness: Kath Stallings is a 32 y/o [id number] who was admitted in latent labor w/ long prodromal phase. She made slow cervical progress. She received an epidural & then an intrathecal catheter for anesthesia. She underwent AROM & Pitocin infusion for augmentation. She received IUPC monitoring to direct Pitocin titration. She developed Triple I in the very last hour of labor. She delivered vaginally w/o further complication, a viable female. - CONSULTS | PROCEDURES Consultations: anesthesia Procedures: epidural placement intrathecal placement AROM Pitocin augmentation IUPC placement - HOSPITAL COURSE Hospital Course: , Kath is ambulating & voiding w/o difficulty or discomfort. She is passing flatus & tolerating a regular diet. She is well w/o difficulty or discomfort. She reports minimal lochia rubra. She has adequate pain control w/ non-opioid analgesia. She is not planning to return to work. She has excellent social support. She is able to fully articulate pp warning s/sx, including pp depression s/sx, and pp aftercare instructions. She is ready to leave the hospital. - ALLERGIES Allergies/Adverse Reactions: Allergies Allergy/AdvReac Type Severity Reaction Status Date / Time amoxicillin Allergy Rash Verified 07/28/18 01:00 - MEDICATIONS Home Medications: Ambulatory Orders Medication Instructions Recorded Confirmed Ibuprofen [Motrin] 800 mg PO Q6H tablet 07/30/18 Witch Amelia/Glycerin [Tucks] 1 each TOP QID PRN med..pad 07/30/18 - PHYSICAL EXAM AT DISCHARGE General Appearance: positive: No acute distress, Alert Eyes Bilateral: positive: Normal inspection Respiratory: positive: Chest non-tender, No respiratory distress, Breath sounds nml Cardiovascular: positive: Regular rate & rhythm, No murmur, No gallop Abdomen: positive: Non-tender, No distention, Other (FF U-1) Back: positive: Nml inspection Skin: positive: Color nml, No rash, Warm, Dry Extremities: positive: Non-tender, Full ROM, Nml appearance, No pedal edema. negative: Calf tenderness, Kirsten's sign/cords Neurologic/Psychiatric: positive: Oriented x3, CN's nml (2-12), Motor nml, Sensation nml, Mood/affect nml - LABS Result Diagrams: 07/29/18 06:15 07/28/18 22:00 - FOLLOW UP Follow Up: x1 week in outpt clinic, earlier PRN - TIME SPENT Time Spent in Discharge (Minutes): 20"
[2018-07-30] MEDS: DOCUSATE SODIUM 100 MG CAPSULE PO SCH (10:19)
[2018-07-30 15:45] VITALS: BP 113/74
--- NOTE | 2018-07-30 15:46 | Labor Flowsheet ---
Labor Flowsheet Datetime Report Generated by CPN: 07/30/2018 15:46 Datetime: 07/30/2018 14:49 VITAL SIGNS NBP Sys/Dafne/Mean (mmHg): 113 : 74 : 82 Pulse: 56 LaborFlag: Labor Datetime: 07/29/2018 03:18 UTERINE ACTIVITY Monitor Mode: Internal Frequency (min): 1.5-2 Quality: Strong Duration (sec): 80-90 Pattern: Normal: <= 5 Contractions in 10 Minutes Resting Tone (Palpate): Relaxed Contraction Comments: unable to determine contraction strength d/t spotty contraction tracing with maternal pushing ASSESSMENT A Monitor Mode: External US FHR Baseline Rate : 155 Variability: Moderate 6-25 bpm Accelerations: 15X15 Comments: possible variable decels, difficult to determine d/t spotty tracing during maternal pushi ng Datetime: 07/29/2018 03:02 VAGINAL EXAM Dilatation (cm): 10.0 Effacement (%): 100 Station: 1 Exam by: Fox Burris Datetime: 07/29/2018 03:00 Resting Tone IUP (mmHg): 25 Intensity IUP (mmHg): 65-80 [place] Units (mmHg): 235 Pitocin Checklist: At Least 1 Acceleration of 15 bpm x 15 Seconds in 30 Minutes or Adequate Variabi lity; No More than 1 Late Deceleration Occurred in Past 30 Minutes; No More than 2 Variable Decelerat ions > 60 Seconds in Duration and decreasing >60 bpm in 30 minutes; No More than 5 Uterine Contractio ns in 10 Minutes for any 20 Minute Interval; Uterus Palpates Soft between Contractions; IUPC Resting Tone less than 25 mmHg FHR Baseline Changes: Tachycardia Decelerations: Variable Category: Category II PAIN Pain Scale: 0 Pain Presence: None/Denies Pain Type: N/A I/O Interventions: Burns Discontinued TEACHING Instructional Method: Verbal Plan of Care: Plan of Care Discussed Labor/Induction: Pushing Methods Datetime: 07/29/2018 02:59 SpO2 (%): 99 STAGE 2 Pushing: Coached on Pushing Pushing Position: Pushing with Contractions; Pushing Lithotomy Pushing Progress: Descent with Pushing Datetime: 07/29/2018 02:49 COMMUNICATION Communication: Provider at Bedside Provider Notified (Name): Morghan Milagrosa Communication Comments: provider in house; provider notified of pt's urine output Datetime: 07/29/2018 02:40 MATERNAL ASSESSMENT Level of Consciousness: Fully Conscious Headache: Denies Breath Sounds, Left: Clear and Equal Breath Sounds, Right: Clear and Equal Nausea/Vomiting: Denies Datetime: 07/29/2018 02:02 Temperature (C): 37.2 Datetime: 07/29/2018 01:22 Patient Position/Activity: High Fowlers Patient Care Comments: frog legs Datetime: 07/29/2018 01:14 Vaginal Exam Comments: pt reports increased pressure Datetime: 07/29/2018 00:45 Respirations: 18 Datetime: 07/29/2018 00:10 Teaching Comments: pt sleeping Datetime: 07/29/2018 00:00 Anesthesia Level Check: T8- Ribs Datetime: 07/28/2018 23:40 Pain Assessment Comments: pt sleeping Datetime: 07/28/2018 23:07 PATIENT CARE IV/Blood Work: IV Bolus Started Datetime: 07/28/2018 22:33 Epidural Procedure: Loading Dose Datetime: 07/28/2018 22:26 Cervix, Position: Midposition Datetime: 07/28/2018 22:00 Pain Location: Abdomen Pain Coping: Talking Through Contractions; Breathing Through Contractions Datetime: 07/28/2018 21:11 MEDICATIONS Pitocin (milliunits): Increased to @ 5 Datetime: 07/28/2018 20:00 Unit Routine: Unit Personnel Datetime: 07/28/2018 19:29 Monitor Interventions for UA: IUPC Inserted Datetime: 07/28/2018 19:15 Oxygen Method: Room Air Datetime: 07/28/2018 18:00 Membrane Status: Ruptured Amniotic Fluid Color: Clear Amniotic Fluid Amount: Small RUQ Epigastric Pain: Denies Datetime: 07/28/2018 16:53 Vital Sign Comments: Pt states rectal pressure Datetime: 07/28/2018 16:00 Anesthesia Comments: Provider updated on 10mg Ehedrine given Datetime: 07/28/2018 15:58 Anesthesia Interventions Other: Ephedrine Datetime: 07/28/2018 15:40 Monitor Interventions for FHR: Ultrasound Adjusted Datetime: 07/28/2018 15:21 Pain Goal: 2 Datetime: 07/28/2018 14:46 Epidural Procedure Other: Pump Started Datetime: 07/28/2018 14:31 ANESTHESIA Anesthesia Plans: Epidural Datetime: 07/28/2018 13:25 Strip Reviewed by: CNM Milagrosa Datetime: 07/28/2018 13:00 Antiemetics/Antacids: Zofran (mg) @ 4mg Datetime: 07/28/2018 11:26 Medication Comments: Verified with H. Brittany, RN Datetime: 07/28/2018 10:59 Cervix, Consistency: Soft Datetime: 07/28/2018 08:08 Membranes Rupture Method: Artificial Amniotic Fluid Odor: Normal Membrane Comments: clear and bloody Datetime: 07/28/2018 08:05 Provider Reviewed Strip: Yes Notification Reason: Status Update; Status; Labor Status; Uterine Activity; Pain; Maternal Vi jelani Sign Change Datetime: 07/28/2018 06:30 Actions for Decelerations: Side to Side Datetime: 07/28/2018 06:00 Stage of : Labor Temperature Route: Oral Datetime: 07/28/2018 01:30 Epidural Positioning: Sitting Datetime: 07/28/2018 01:07 Presentation 'A': Cephalic
== END 2018-07-30 15:45 | disposition home or self-care (01) | DRG 805 ==
LOC: WFO 19:17 → FBP 19:18 → WFO 22:35 → FBP 22:40
PROVIDERS: ADMIT Registered Nurse; ATTEND Registered Nurse
PROC: 10907ZC Drainage of Amniotic Fluid, Therapeutic from Products of Conception, Via Natural or Artificial Opening (ICD-10-PCS; 2018-07-28)
PROC: 10E0XZZ Delivery of Products of Conception, External Approach (ICD-10-PCS; principal; 2018-07-29)
DX: O48.1 Prolonged pregnancy (principal); O41.1230 Chorioamnionitis, third trimester, not applicable or unspecified; Z37.0 Single live birth; O63.0 Prolonged first stage (of labor); O62.9 Abnormality of forces of labor, unspecified; O76 Abnormality in fetal heart rate and rhythm complicating labor and delivery; Z3A.40 40 weeks gestation of pregnancy
CPT/HCPCS: 36415; 80053; 84112; 85025; 99212; 99213

== ENCOUNTER 2019-06-12 11:00 | Outpatient (CLI) | payer BC, OTHER | END 2019-06-12 23:59 | disposition home or self-care (01) | LOC: LAB.R 11:00 | PROVIDERS: ATTEND Nurse Practitioner Obstetrics & Gynecology | DX: R30.0 Dysuria (principal) | CPT/HCPCS: 87077; 87086; 87181 ==

== ENCOUNTER 2021-01-16 08:17 | Outpatient (CLI) | payer OTHER ==
--- NOTE | 2021-01-19 17:20 | Ultrasound Report ---
PROCEDURE: OB First Trimester Addl Fetus INDICATIONS: positive test OUTSIDE/PRIOR DATING DATA: Last menstrual period (LMP): 10/31/2020. LMP-based estimated date of delivery (LORAINE): 08/07/2021. First dating scan (date and location): 01/16/2021. Estimated date of delivery (LORAINE) from first dating scan: 08/04/2021. TECHNIQUE: Real-time scanning was performed of the fetuses and maternal pelvic organs, with image documentation. Endovaginal scanning: Performed for better visualization of the fetuses and maternal adnexal structu res. COMPARISON: None. FINDINGS: GENERAL: An intrauterine mono-amniotic mono-chorionic twin is present, as evidenced by sepa rate placental sites and/or intervening membrane thickness of greater than 2 mm at this early gestati onal age. There is what appears to be a monochorionic mild amniotic twin . Placenta is anterior. Cervi curtis length measures 4.4 cm. Fetus a has a crown-rump length of 4.7 cm corresponding to 11 weeks 3 days. heart rate is 162 b pm. Fetus B has a crown-rump length of 4.4 cm corresponding to 11 weeks 2 days. Heart rate is measured at 176 bpm. Gestational age by ultrasound today is 11 weeks 3 days for fetus a and 11 weeks 2 days for fetus B. M easurement variability in dating: +/- 4 weeks by LMP, +/- 7 days by mean sac diameter (use before 6 weeks gestation if crown-rump length not able to be measured), +/- 5 days by crown-rump length (6-12 weeks gestation). Maternal organs: Ovaries demonstrate a corpus luteal cyst on the left measuring 2.1 x 1.9 x 1.8 cm.. IMPRESSION: 1. Live twin as above. It appears to be monoamniotic monochorionic. However, recommend shor t interval imaging follow-up high-frequency transducer for additional search of potential membrane, w hich was not visible on current exam. 2. Gestational age of fetus a is 11 weeks 3 days and 11 weeks 2 days for fetus B. 3. Recommend follow-up imaging at 20-22 weeks for dates and anatomy. Reviewed by: Che Cotton MD on 01/19/2021 5:19 PM PDT Approved by: Che Cotton MD on 01/19/2021 5:19 PM PDT Station ID: [id number]
--- NOTE | 2021-01-19 17:21 | Ultrasound Report ---
PROCEDURE: OB First Trimester INDICATIONS: positive test OUTSIDE/PRIOR DATING DATA: Last menstrual period (LMP): 10/31/2020. LMP-based estimated date of delivery (LORAINE): 08/07/2021. First dating scan (date and location): 01/16/2021. Estimated date of delivery (LORAINE) from first dating scan: 08/04/2021. TECHNIQUE: Real-time scanning was performed of the fetuses and maternal pelvic organs, with image documentation. Endovaginal scanning: Performed for better visualization of the fetuses and maternal adnexal structu res. COMPARISON: None. FINDINGS: GENERAL: An intrauterine mono-amniotic mono-chorionic twin is present, as evidenced by sepa rate placental sites and/or intervening membrane thickness of greater than 2 mm at this early gestati onal age. There is what appears to be a monochorionic mild amniotic twin . Placenta is anterior. Cervi curtis length measures 4.4 cm. Fetus a has a crown-rump length of 4.7 cm corresponding to 11 weeks 3 days. heart rate is 162 b pm. Fetus B has a crown-rump length of 4.4 cm corresponding to 11 weeks 2 days. Heart rate is measured at 176 bpm. Gestational age by ultrasound today is 11 weeks 3 days for fetus a and 11 weeks 2 days for fetus B. M easurement variability in dating: +/- 4 weeks by LMP, +/- 7 days by mean sac diameter (use before 6 weeks gestation if crown-rump length not able to be measured), +/- 5 days by crown-rump length (6-12 weeks gestation). Maternal organs: Ovaries demonstrate a corpus luteal cyst on the left measuring 2.1 x 1.9 x 1.8 cm.. IMPRESSION: 1. Live twin as above. It appears to be a monoamnionic monochorionic . However, recommend short interval imaging follow-up high-frequency transducer for additional search of potenti al membrane, which was not visible on current exam. 2. Gestational age of fetus a is 11 weeks 3 days and 11 weeks 2 days for fetus B. 3. Recommend follow-up imaging at 20-22 weeks for dates and anatomy. Reviewed by: Che Cotton MD on 01/19/2021 5:19 PM PDT Approved by: Che Cototn MD on 01/19/2021 5:19 PM PDT Station ID: [id number]
== END 2021-01-16 08:18 | disposition home or self-care (01) ==
LOC: DI 08:17
PROVIDERS: ATTEND Obstetrics & Gynecology
DX: O30.011 Twin pregnancy, monochorionic/monoamniotic, first trimester (principal); Z3A.11 11 weeks gestation of pregnancy; Z36.89 Encounter for other specified antenatal screening
CPT/HCPCS: 36415; 81001; 85025; 86592; 86762; 86787; 86803; 86850; 86900; 86901; 87086; 87340; 87389

== ENCOUNTER 2021-01-16 09:27 | Outpatient (CLI) | payer OTHER ==
[2021-01-16 09:57] LABS: BILIRUBIN,URINE NEGATIVE (NEGATIVE); CLARITY,URINE CLEAR (CLEAR); GLUCOSE, URINE (UA) NEGATIVE (NEGATIVE); KETONES,URINE (UA) NEGATIVE (NEGATIVE); LEUKOCYTE ESTERASE, URINE NEGATIVE (NEGATIVE); NITRITE,URINE NEGATIVE (NEGATIVE); OCCULT BLOOD,URINE TRACE-INTA (NEGATIVE); PH,URINE 6.5 PH (5.0-7.5); PROTEIN,URINE NEGATIVE (NEGATIVE); UROBILINOGEN,URINE 0.2 (NORMAL) E.U./dL (NORMAL)
[2021-01-16 09:58] LABS: BASOPHILS % (AUTO) 0.4 %; EOSINOPHILS # (AUTO) 0.1 10^3/uL (0.0-0.7); EOSINOPHILS % (AUTO) 0.8 %; HCT - HEMATOCRIT 37.7 % (37.0-47.0); HGB - HEMOGLOBIN 12.9 g/dL (12.0-16.0); LYMPHOCYTES # (AUTO) 1.3 10^3/uL (1.5-3.5); LYMPHOCYTES % (AUTO) 14.4 %; MEAN CORPUSCULAR HEMOGLOBIN 29.5 pg (27.0-31.0); MEAN CORPUSCULAR HGB CONC 34.2 g/dL (32.0-36.0); MEAN CORPUSCULAR VOLUME 86.3 fL (81.0-99.0); MEAN PLATELET VOLUME 11.2 fL (7.9-10.8); MONOCYTES # (AUTO) 0.5 10^3/uL (0.0-1.0); MONOCYTES % (AUTO) 5.5 %; NEUTROPHILS # (AUTO) 7.1 10^3/uL (1.5-6.6); NEUTROPHILS % (AUTO) 78.6 %; PLT - PLATELET COUNT 238 10^3/uL (130-450); RED BLOOD COUNT 4.37 10^6/uL (4.20-5.40); RED CELL DISTRIBUTION WIDTH 12.4 % (12.0-15.0)
[2021-01-16 10:21] LABS: BACTERIA,URINE Rare /HPF (None Seen); RBC,URINE 0-5 /HPF (0-5); SQUAMOUS EPITHELIAL CELL,UR FEW Squamous (<= Few); WBC,URINE 0-3 /HPF (0-5)
[2021-01-17 11:41] LABS: HEPATITIS C ANTIBODY NON-REACTIVE (NON-REACTIVE)
[2021-01-17 11:42] LABS: HEPATITIS B SURFACE ANTIGEN NON-REACTIVE (NON-REACTIVE)
[2021-01-17 15:02] LABS: HIV AG/AB 4TH GEN NON-REACTIVE (NON-REACTIVE)
== END 2021-01-16 09:28 | disposition home or self-care (01) ==
LOC: LAB 09:27
PROVIDERS: ATTEND Obstetrics & Gynecology
DX: Z36.89 Encounter for other specified antenatal screening (principal)
CPT/HCPCS: 36415; 81001; 85025; 86592; 86762; 86787; 86803; 86850; 86900; 86901; 87086; 87340; 87389

== ENCOUNTER 2021-05-08 08:30 | Outpatient (CLI) | payer OTHER ==
[2021-05-08 09:03] LABS: GTT GLUCOSE,FASTING 90 mg/dL (70-100)
== END 2021-05-08 08:31 | disposition home or self-care (01) ==
LOC: LAB 08:30
DX: O09.92 Supervision of high risk pregnancy, unspecified, second trimester (principal)
CPT/HCPCS: 36415; 82951; 82952

== ENCOUNTER 2021-07-21 20:50 | Emergency (ER) | payer OTHER ==
[2021-07-21 21:24] LABS: BASOPHILS % (AUTO) 0.3 %; EOSINOPHILS # (AUTO) 0.2 10^3/uL (0.0-0.7); EOSINOPHILS % (AUTO) 2.7 %; HCT - HEMATOCRIT 25.6 % (37.0-47.0); HGB - HEMOGLOBIN 8.7 g/dL (12.0-16.0); LYMPHOCYTES # (AUTO) 1.5 10^3/uL (1.5-3.5); LYMPHOCYTES % (AUTO) 19.5 %; MEAN CORPUSCULAR HEMOGLOBIN 30.7 pg (27.0-31.0); MEAN CORPUSCULAR VOLUME 90.5 fL (81.0-99.0); MEAN PLATELET VOLUME 10.7 fL (7.9-10.8); MONOCYTES # (AUTO) 0.5 10^3/uL (0.0-1.0); MONOCYTES % (AUTO) 5.9 %; NEUTROPHILS # (AUTO) 5.4 10^3/uL (1.5-6.6); NEUTROPHILS % (AUTO) 70.3 %; PLT - PLATELET COUNT 190 10^3/uL (130-450); RED BLOOD COUNT 2.83 10^6/uL (4.20-5.40); RED CELL DISTRIBUTION WIDTH 12.8 % (12.0-15.0); WHITE BLOOD COUNT 7.7 x10^3/uL (4.8-10.8)
[2021-07-21 21:37] LABS: ALBUMIN 2.8 g/dL (3.2-5.5); ALBUMIN/GLOBULIN RATIO 0.8 (1.0-2.2); ALKALINE PHOSPHATASE 120 IU/L (42-121); ALT ALANINE AMINOTRANSFERASE 32 IU/L (10-60); AST ASPARTATE AMINOTRANSFERASE 33 IU/L (10-42); BILIRUBIN,TOTAL < 0.2 mg/dL (0.2-1.0); BUN - BLOOD UREA NITROGEN 12 mg/dL (6-20); CALCIUM 8.8 mg/dL (8.5-10.3); CARBON DIOXIDE - CO2 24 mmol/L (21-32); CHLORIDE 100 mmol/L (101-111); CREATININE 0.7 mg/dL (0.4-1.0); GFR - MDRD 96 (>89); GLUCOSE 95 mg/dL (70-100); LIPASE 34 U/L (22-51); POTASSIUM 3.8 mmol/L (3.5-5.0); SODIUM 133 mmol/L (135-145); TOTAL PROTEIN 6.1 g/dL (6.7-8.2)
[2021-07-21 22:32] LABS: BILIRUBIN,URINE NEGATIVE (NEGATIVE); GLUCOSE, URINE (UA) NEGATIVE (NEGATIVE); KETONES,URINE (UA) NEGATIVE (NEGATIVE); LEUKOCYTE ESTERASE, URINE NEGATIVE (NEGATIVE); NITRITE,URINE NEGATIVE (NEGATIVE); OCCULT BLOOD,URINE LARGE (NEGATIVE); PROTEIN,URINE NEGATIVE (NEGATIVE); UROBILINOGEN,URINE 0.2 (NORMAL) E.U./dL (NORMAL)
[2021-07-21 22:35] LABS: CLARITY,URINE CLEAR (CLEAR)
--- NOTE | 2021-07-21 23:03 | ED Physician Documentation ---
PD HPI SYNCOPE - Stated complaint Stated Complaint: DIZZY, LIGHT HEADED - Chief complaint Chief Complaint: General - History obtained from History obtained from: Patient, Family - History of Present Illness Witnessed: Witnessed Timing - onset: Today Duration: Seconds Preceding symptoms: Vision changes, Diaphoresis, Abdominal pain, Light headed, Generalized weakness Associated symptoms: Diaphoresis, Nausea / vomiting, Abdominal pain. No: Seizure, Chest pain, Palpitations Contributing factors: Just stood up, Other (recent and on ibuprofen had significant blood loss) Injury occurred: None Similar symptoms before: Has not had sx before Recently seen: Surgery - Additional information Additional information: Previous well 35-year-old female who has recently had a section 4 days ago at [facility] for a twin gestation. This evening she complains of a episode consisting of sharp abdominal pain nausea diaphoresis and near syncope. The patient did not have syncope and she did not have seizure. She did have significant blood loss associated with her and she left the hospital with a hematocrit of 27 having entered the hospital with hematocrit of 34.4. She is taking oxycodone Tylenol and ibuprofen for pain control. Her last dose of ibuprofen was at about 6 PM with dinner. She does not usually take ibuprofen. Review of Systems Constitutional: denies: Fever Eyes: denies: Decreased vision Ears: denies: Ear pain Nose: denies: Congestion Throat: denies: Sore throat Cardiac: denies: Chest pain / pressure, Palpitations, Pedal edema, Calf pain Respiratory: denies: Dyspnea, Cough, Wheezing GI: reports: Abdominal Pain, Nausea. denies: Vomiting, Constipation, Diarrhea : denies: Dysuria, Frequency Skin: denies: Rash Musculoskeletal: denies: Neck pain, Back pain, Extremity pain Neurologic: reports: Near syncope. 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 - Present Medications Home Medications: Ambulatory Orders Medication Instructions Recorded Confirmed Ibuprofen [Motrin] 800 mg PO Q6H tablet 07/30/18 07/21/21 Witch Amelia/Glycerin [Tucks] 1 each TOP QID PRN med..pad 07/30/18 07/21/21 Ferrous Gluconate 324 mg PO DAILY #30 tablet 07/21/21 oxyCODONE [Roxicodone] 5 mg PO DAILY 07/21/21 07/21/21 - Allergies Allergies/Adverse Reactions: Allergies Allergy/AdvReac Type Severity Reaction Status Date / Time amoxicillin Allergy Rash Verified 07/28/18 01:00 - Social History Does the pt smoke?: No Smoking Status: Never smoker Does the pt drink ETOH?: No Does the pt have substance abuse?: No - Immunizations Immunizations are current?: Yes - POLST Patient has POLST: No PD ED PE NORMAL - Vitals Vital signs reviewed: Yes (Hypertensive mild) - General General: Alert and oriented X 3, No acute distress, Well developed/nourished - HEENT HEENT: Atraumatic, PERRL, EOMI - Neck Neck: Supple, no meningeal sign, No bony TTP - Cardiac Cardiac: RRR, No murmur - Respiratory Respiratory: No respiratory distress, Clear bilaterally - Abdomen Abdomen: Normal bowel sounds, Soft, Non tender, Non distended, No organomegaly - Back Back: No CVA TTP, No spinal TTP - Derm Derm: Normal color, Warm and dry, No rash - Extremities Extremities: No deformity, No edema - Neuro Neuro: Alert and oriented X 3, 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, No motor deficit, No sensory deficit, Normal speech Eye Opening: Spontaneous Motor: Obeys Commands Verbal: Oriented GCS Score: 15 - Psych Psych: Normal mood, Normal affect Results - Vitals Vitals: Vital Signs - 24 hr 07/21/21 07/21/21 07/21/21 20:54 22:30 23:22 Temperature 36.5 C 37.0 C Heart Rate 81 62 73 Respiratory 16 16 Rate Blood Pressure 133/75 H 108/71 109/75 O2 Saturation 100 100 100 Oxygen O2 Source Room air - Labs Labs: Laboratory Tests 07/21/21 07/21/21 07/21/21 21:17 21:17 22:23 WBC 7.7 RBC 2.83 L Hgb 8.7 L Hct 25.6 L MCV 90.5 MCH 30.7 MCHC 34.0 RDW 12.8 Plt Count 190 MPV 10.7 Neut # (Auto) 5.4 Lymph # (Auto) 1.5 [place] # (Auto) 0.5 Eos # (Auto) 0.2 Baso # (Auto) 0.0 Absolute Nucleated RBC 0.00 Nucleated RBC % 0.0 Sodium 133 L Potassium 3.8 Chloride 100 L Carbon Dioxide 24 Anion Gap 9.0 BUN 12 Creatinine 0.7 Estimated GFR (MDRD) 96 Glucose 95 Calcium 8.8 Total Bilirubin < 0.2 L AST 33 ALT 32 Alkaline Phosphatase 120 Total Protein 6.1 L Albumin 2.8 L Globulin 3.3 Albumin/Globulin Ratio 0.8 L Lipase 34 Urine Color LT. YELLOW Urine Clarity CLEAR Urine pH 6.0 Ur Specific [place] 1.010 Urine Protein NEGATIVE Urine Glucose (UA) NEGATIVE Urine Ketones NEGATIVE Urine Occult Blood LARGE H Urine Nitrite NEGATIVE Urine Bilirubin NEGATIVE Urine Urobilinogen 0.2 (NORMAL) Ur Leukocyte Esterase NEGATIVE Urine RBC 0-5 Urine WBC 0-3 Ur Squamous Epith Cells MOD Squamous H Urine Bacteria None Seen Ur Microscopic Review INDICATED Urine Culture Comments NOT INDICATED Procedures - IVC sono (time) 2119 Bedside IVC sono: IVC measures (cm) (1.68), IVC collapsed c insp (cm) (1.42), Euvolemia PD MEDICAL DECISION MAKING - ED course Complexity details: reviewed old records, reviewed results, re-evaluated patient, considered differential, d/w patient ED course: 35-year-old female presents to the emergency department this evening with near syncope and it does sound like she had a vaso-vagal response. She does not usually take ibuprofen and she has been taking this for the past 3 days and the episode happened shortly after taking a dose this evening at dinnertime. The patient became diaphoretic and had near syncope with dizziness and nausea. I suspect her symptom complex this evening is from a vasovagal response. We did not find her to be volume depleted. She does have a low hematocrit and a normal volume. I do not do not suspect current bleeding. I have asked patient to stop the ibuprofen I have discussed with her the nature of her anemia and we will place her on oral iron. I believe it was the intention of her discharging physician to place her on oral iron the patient indicates that she was given a dose before she left the hospital but did not have a prescription that she was aware of. Departure - Departure Disposition: 01 Home, Self Care Clinical Impression: Vasovagal near syncope Anemia Qualifiers: Anemia type: unspecified type Qualified Code(s): D64.9 - Anemia, unspecified Condition: Stable Instructions: ED Anemia Type Not Specified, ED Near Syncope Vasovagal Follow-Up: Linda Hairston, [facility], CLERICAL OFFICE [Provider Admit Priv/Credential] - Prescriptions: Ferrous Gluconate 324 mg PO DAILY #30 tablet Comments: Kath, today it looks like you had a vasovagal near syncope. This was likely due to your use of ibuprofen and my recommendation is to discontinue the use of the ibuprofen.In addition it looks like you are significantly anemic and iron supplementation is indicated. A prescription for iron pills has been E scribed to [facility] in [place]. Discharge Date/Time: 07/21/21 23:23
[2021-07-21 23:04] LABS: BACTERIA,URINE None Seen /HPF (None Seen); RBC,URINE 0-5 /HPF (0-5); SQUAMOUS EPITHELIAL CELL,UR MOD Squamous (<= Few); WBC,URINE 0-3 /HPF (0-5)
[2021-07-21 23:23] VITALS: BP 109/75
== END 2021-07-21 23:23 | disposition home or self-care (01) ==
LOC: ED 20:50
DX: O90.89 Other complications of the puerperium, not elsewhere classified (principal); R55 Syncope and collapse; O90.81 Anemia of the puerperium; D64.9 Anemia, unspecified
CPT/HCPCS: 36415; 80053; 81001; 81003; 83690; 85025; 87086; 99283; 99284